=== PATIENT | female | born 1945 | race African-American/Black ===

== ENCOUNTER 2021-01-28 16:20 | Emergency (ER) | payer MEDICARE, OTHER ==
[~2021-01-28] VITALS: Ht 160 cm; Wt 77.1 kg
[~2021-01-28 16:20] MED LIST: [UNRECOGNIZED DRUG - CODE]
[2021-01-28] MEDS ORDERED: OXYCODONE W/ ACETAMINOPHEN 5/325MG TABLET PO ONE (22:30)
[2021-01-28 23:30] VITALS: BP 114/69
== END 2021-01-28 23:40 | disposition home or self-care (01) ==
LOC: ER 16:20 → EDBD 16:20 → ER 23:40
DX: S82.092A Other fracture of left patella, initial encounter for closed fracture (principal); M19.90 Unspecified osteoarthritis, unspecified site; I25.2 Old myocardial infarction; Z88.6 Allergy status to analgesic agent; W01.0XXA Fall on same level from slipping, tripping and stumbling without subsequent striking against object, initial encounter; Y93.89 Activity, other specified; Y92.89 Other specified places as the place of occurrence of the external cause; Y99.8 Other external cause status
CPT/HCPCS: 70450; 71045; 72125; 73562